=== PATIENT | female | born 1970 | race Caucasian/White ===

== ENCOUNTER 2016-10-24 16:24 | Observation (INO) ==
--- NOTE | 2016-10-24 17:14 | Emergency Department Note ---
Disposition Clinical Impression: Psychiatric care, Mental retardation Disposition: Admitted As Inpatient Psych HPI - General Chief Complaint: ED Psychiatric Symptoms Stated Complaint: psych eval Time Seen by Provider: 10/24/16 16:45 Source: patient - History of Present Illness HPI Narrative: 46 yo female presented with complaint of acting bizarre per family. Family reports the patient has been standing and staring into space for hours, states that she might have schizophrenia. Patient has no known history of schizophrenia, family is not really sure what psychiatric diagnoses she has in the past. However, they do report that she has been on antipsychotics in the past. Patient was seen at an outside emergency department and transferred here to be seen by psychiatry. Family denies patient having any suicidal/homicidal ideation, past history of suicidal attempts. Pt complaint: altered mental status Duration: constant History of similar episodes: Yes Worsens with: none Alleged intoxication: Yes - Related Data Home Medications Medication Instructions Recorded Confirmed Lisinopril [Zestril] 5 mg PO DAILY 02/11/16 02/11/16 Previous Rx's Medication Instructions Recorded Gabapentin [Neurontin] 300 mg PO TID #90 capsule 02/12/16 RisperiDONE [RisperDAL] 1 mg PO BID #60 tablet 02/12/16 TraZODone 50 mg PO HS PRN #30 tablet 02/12/16 Allergies Allergy/AdvReac Type Severity Reaction Status Date / Time No Known Allergies Allergy Verified 12/23/15 19:25 Limitations: ROS unobtainable due to patients medical condition Past Medical History - Past Medical History Medical history: Reports: hypertension Surgical history: Reports: , other Psychiatric history: Reports: previous psychiatric hospitalization [employer] history: Reports: other - Social History Smoking Status: Never smoker Smokeless Tobacco Status: No Alcohol use: Reports: none Drug use: Reports: none Physical Exam - General Limitations: no limitations General appearance: alert, in no apparent distress - Head Head exam: atraumatic, normocephalic, normal inspection - Eye Eye exam: Present: normal appearance, PERRL - Expanded Eye Exam Pupils: Left: reactive - ENT ENT exam: normal exam, normal oropharynx, mucous membranes moist - Expanded ENT Exam External ear exam: Present: normal external inspection Mouth exam: Present: normal external inspection Teeth exam: Present: normal inspection Throat exam: Present: normal inspection - Neck Neck exam: Present: trachea midline. Absent: tenderness - Chest Chest inspection: Present: normal inspection, symmetric chest wall rise - Respiratory Respiratory exam: Absent: respiratory distress, wheezes - Cardiovascular Cardiovascular exam: Present: normal rhythm - Abdominal Exam Abdominal exam: Absent: tenderness, distention - Extremities Exam Extremities exam: Present: normal inspection, full ROM. Absent: tenderness, pedal edema - Expanded Upper Extremity Exam Vascular exam: Normal: capillary refill, radial pulse - Expanded Lower Extremity Exam Neurovascular/Tendon exam: Absent: motor deficit, sensory deficit, tendon deficit - Back Exam Back exam: Present: normal inspection, full ROM. Absent: tenderness - Neurological Exam Neurological exam: Present: alert, oriented X3 - Expanded Neurological Exam Patient oriented to: Present: person, place, time Coma Scale Eye Opening: Spontaneous Coma Scale Motor Response: Obeys Commands Coma Scale Verbal Response: Oriented Coma Scale Total: 15 - Psychiatric Psychiatric exam: Present: normal affect, normal mood - Skin Skin exam: Present: warm, dry, intact, normal color Course Course Narrative: Patient presented with complaint of acting bizarre, some catatonia per family. Family suspects the patient might have schizophrenia, she does not appear to be hallucinating when I am in the room. Otherwise she is noncooperative the review of systems, she keeps repeating that she wants to go home. Patient's family is in the ED providing most of the history. I will get basic labs, call psychiatric constipation. - Reevaluation(s) Reevaluation #1: Psychiatrist cleared patient from acute psychiatric travel standpoint; however, patient cannot be discharged home because family feel that she cannot be safe at home being taken care of by pt's father. Patient's brother, [id number] and nephew expressed great concern that patient would not be safe going home under father's care as was previously arrangement. I Did discuss case with the hospitalist, he is willing to admit patient for observation and social sciences research scientist evaluation in the morning and further care. Patient's father agrees with this plan of care at this time. Vital Signs Temperature 98.2 F 10/24/16 16:26 Pulse Rate 116 10/24/16 16:26 Respiratory Rate 20 10/24/16 16:26 Blood Pressure 96/60 10/24/16 16:26 O2 Sat by Pulse Oximetry 98 10/24/16 16:26 Temperature 98.3 F 10/24/16 21:59 Pulse Rate 116 10/24/16 21:59 Respiratory Rate 16 10/24/16 21:59 Blood Pressure 96/60 10/24/16 16:26 O2 Sat by Pulse Oximetry 96 10/24/16 21:59 Oxygen Delivery Oxygen Delivery Room Air Psych - Lab Data Result diagrams: 10/24/16 17:25 10/24/16 17:25 Lab Results 10/24/16 10/24/16 10/24/16 Range/Units 17:08 17:08 17:10 WBC (4.3-11.1) K/mcL RBC (3.82-4.97) M/mcL Hgb (11.5-15.4) g/dL Hct (35.3-44.9) % MCV (83.0-100.0) fL MCH (28.0-33.3) pg MCHC (31.6-35.5) g/dL RDW (11.5-14.5) % Plt Count (140-400) K/mcL MPV (9.4-12.4) fL Immature Gran % (0-4) % Seg Neutrophils % % Lymphocytes % % Monocytes % % Eosinophils % % Basophils % % Neutrophils # (1.6-8.9) K/mcL Lymphocytes # (0.6-4.6) K/mcL Monocytes # (0.0-1.3) K/mcL Eosinophils # (0.0-0.6) K/mcL Basophils # (0.0-0.2) K/mcL Sodium (136-145) mEq/L Potassium (3.5-4.5) mEq/L Chloride (98-109) mEq/L Carbon Dioxide (19-29) mEq/L BUN (7-20) mg/dL Creatinine (0.57-1.11) mg/dL Est GFR ( Amer) (> 60) Est GFR (Non-Af Amer) (> 60) BUN/Creatinine Ratio (6-26) Glucose (70-99) mg/dL Calculated Osmolality (280-300) Calcium (8.6-10.8) mg/dL TSH (0.350-4.840) mcIU/mL Urine Color Yellow (Yellow) Urine Clarity Clear (Clear) Urine pH 5.5 (5.0-8.0) pH Units Ur Specific [place] 1.027 H (1.010-1.025) Urine Protein Trace (Neg-Trace) mg/dL Urine Glucose (UA) Normal (Normal) mg/dL Urine Ketones 15 H (Negative) mg/dL Urine Blood Negative (Negative) Urine Nitrite Negative (Negative) Urine Bilirubin Small H (Negative) Urine Urobilinogen Normal (Normal) mg/dL Ur Leukocyte Esterase Negative (Negative) Urine Microscopic RBC 0-3 (0-3) per hpf Urine Microscopic WBC 0-3 (0-3) per hpf Ur Squamous Epith Cells Many H (None-Few) per lpf Urine Bacteria Moderate H (None-Few) per hpf Hyaline Casts None Seen (None-Few) per lpf Ur Culture Indicated? NO (NO) Urine Test Negative (Negative) Salicylates (15-30) mg/dL Urine Opiates Screen Negative (Mtnwbm=429) ng/mL Acetaminophen (10-30) mcg/mL Ur Barbiturates Screen Negative (Hmcnwa=482) ng/mL Ur Phencyclidine Scrn Negative (Cutoff=25) ng/mL Ur Amphetamines Screen Negative (Gretqs=8121) ng/mL U Benzodiazepines Scrn Negative (Gnldol=995) ng/mL Urine Cocaine Screen Negative (Cutoff= 300) ng/mL U Marijuana (THC) Screen Negative (Cutoff = 50) ng/mL Ethyl Alcohol (0-10) mg/dL 10/24/16 10/24/16 10/24/16 Range/Units 17:25 17:25 17:25 WBC 9.3 (4.3-11.1) K/mcL RBC 3.86 (3.82-4.97) M/mcL Hgb 10.4 L (11.5-15.4) g/dL Hct 32.4 L (35.3-44.9) % MCV 83.9 (83.0-100.0) fL MCH 26.9 L (28.0-33.3) pg MCHC 32.1 (31.6-35.5) g/dL RDW 16.4 H (11.5-14.5) % Plt Count 320 (140-400) K/mcL MPV 9.6 (9.4-12.4) fL Immature Gran % 0.2 (0-4) % Seg Neutrophils % 78.9 % Lymphocytes % 13.5 % Monocytes % 6.6 % Eosinophils % 0.5 % Basophils % 0.3 % Neutrophils # 7.3 (1.6-8.9) K/mcL Lymphocytes # 1.3 (0.6-4.6) K/mcL Monocytes # 0.6 (0.0-1.3) K/mcL Eosinophils # 0.1 (0.0-0.6) K/mcL Basophils # 0.0 (0.0-0.2) K/mcL Sodium 137 (136-145) mEq/L Potassium 4.0 (3.5-4.5) mEq/L Chloride 102 (98-109) mEq/L Carbon Dioxide 24 (19-29) mEq/L BUN 27 H (7-20) mg/dL Creatinine 1.08 (0.57-1.11) mg/dL Est GFR ( Amer) > 60 (> 60) Est GFR (Non-Af Amer) 55 L (> 60) BUN/Creatinine Ratio 25 (6-26) Glucose 110 H (70-99) mg/dL Calculated Osmolality 290 (280-300) Calcium 9.8 (8.6-10.8) mg/dL TSH (0.350-4.840) mcIU/mL Urine Color (Yellow) Urine Clarity (Clear) Urine pH (5.0-8.0) pH Units Ur Specific [place] (1.010-1.025) Urine Protein (Neg-Trace) mg/dL Urine Glucose (UA) (Normal) mg/dL Urine Ketones (Negative) mg/dL Urine Blood (Negative) Urine Nitrite (Negative) Urine Bilirubin (Negative) Urine Urobilinogen (Normal) mg/dL Ur Leukocyte Esterase (Negative) Urine Microscopic RBC (0-3) per hpf Urine Microscopic WBC (0-3) per hpf Ur Squamous Epith Cells (None-Few) per lpf Urine Bacteria (None-Few) per hpf Hyaline Casts (None-Few) per lpf Ur Culture Indicated? (NO) Urine Test (Negative) Salicylates < 5.0 L (15-30) mg/dL Urine Opiates Screen (Ktkgbk=364) ng/mL Acetaminophen < 1.0 L (10-30) mcg/mL Ur Barbiturates Screen (Nnjxuu=764) ng/mL Ur Phencyclidine Scrn (Cutoff=25) ng/mL Ur Amphetamines Screen (Skxlbt=5853) ng/mL U Benzodiazepines Scrn (Hqskwb=268) ng/mL Urine Cocaine Screen (Cutoff= 300) ng/mL U Marijuana (THC) Screen (Cutoff = 50) ng/mL Ethyl Alcohol (0-10) mg/dL 10/24/16 10/24/16 Range/Units 17:25 17:25 WBC (4.3-11.1) K/mcL RBC (3.82-4.97) M/mcL Hgb (11.5-15.4) g/dL Hct (35.3-44.9) % MCV (83.0-100.0) fL MCH (28.0-33.3) pg MCHC (31.6-35.5) g/dL RDW (11.5-14.5) % Plt Count (140-400) K/mcL MPV (9.4-12.4) fL Immature Gran % (0-4) % Seg Neutrophils % % Lymphocytes % % Monocytes % % Eosinophils % % Basophils % % Neutrophils # (1.6-8.9) K/mcL Lymphocytes # (0.6-4.6) K/mcL Monocytes # (0.0-1.3) K/mcL Eosinophils # (0.0-0.6) K/mcL Basophils # (0.0-0.2) K/mcL Sodium (136-145) mEq/L Potassium (3.5-4.5) mEq/L Chloride (98-109) mEq/L Carbon Dioxide (19-29) mEq/L BUN (7-20) mg/dL Creatinine (0.57-1.11) mg/dL Est GFR ( Amer) (> 60) Est GFR (Non-Af Amer) (> 60) BUN/Creatinine Ratio (6-26) Glucose (70-99) mg/dL Calculated Osmolality (280-300) Calcium (8.6-10.8) mg/dL TSH 2.285 (0.350-4.840) mcIU/mL Urine Color (Yellow) Urine Clarity (Clear) Urine pH (5.0-8.0) pH Units Ur Specific [place] (1.010-1.025) Urine Protein (Neg-Trace) mg/dL Urine Glucose (UA) (Normal) mg/dL Urine Ketones (Negative) mg/dL Urine Blood (Negative) Urine Nitrite (Negative) Urine Bilirubin (Negative) Urine Urobilinogen (Normal) mg/dL Ur Leukocyte Esterase (Negative) Urine Microscopic RBC (0-3) per hpf Urine Microscopic WBC (0-3) per hpf Ur Squamous Epith Cells (None-Few) per lpf Urine Bacteria (None-Few) per hpf Hyaline Casts (None-Few) per lpf Ur Culture Indicated? (NO) Urine Test (Negative) Salicylates (15-30) mg/dL Urine Opiates Screen (Lotsxq=178) ng/mL Acetaminophen (10-30) mcg/mL Ur Barbiturates Screen (Tjnwic=195) ng/mL Ur Phencyclidine Scrn (Cutoff=25) ng/mL Ur Amphetamines Screen (Buscwp=6061) ng/mL U Benzodiazepines Scrn (Apqvjk=942) ng/mL Urine Cocaine Screen (Cutoff= 300) ng/mL U Marijuana (THC) Screen (Cutoff = 50) ng/mL Ethyl Alcohol < 10 (0-10) mg/dL Psychiatric Medical Clearance - Medical Clearance Checklist Medical History: No Social History Section defined Current Vitals: Last Vital Signs Temp 98.3 F 10/24/16 21:59 Pulse 116 10/24/16 21:59 Resp 16 10/24/16 21:59 BP 96/60 10/24/16 16:26 Pulse Ox 96 10/24/16 21:59 Psychiatric Lab Panel: Drug Levels and Toxicity 10/24/16 10/24/16 10/24/16 17:10 17:25 17:25 Urine Opiates Screen Negative Acetaminophen < 1.0 L Ur Barbiturates Screen Negative Ur Phencyclidine Scrn Negative Ur Amphetamines Screen Negative U Benzodiazepines Scrn Negative Urine Cocaine Screen Negative U Marijuana (THC) Screen Negative Ethyl Alcohol < 10 Abnormal Labs: Abnormal lab results Hgb 10.4 g/dL (11.5-15.4) L 10/24/16 17:25 Hct 32.4 % (35.3-44.9) L 10/24/16 17:25 MCH 26.9 pg (28.0-33.3) L 10/24/16 17:25 RDW 16.4 % (11.5-14.5) H 10/24/16 17:25 BUN 27 mg/dL (7-20) H 10/24/16 17:25 Est GFR (Non-Af Amer) 55 (> 60) L 10/24/16 17:25 Glucose 110 mg/dL (70-99) H 10/24/16 17:25 Ur Specific [place] 1.027 (1.010-1.025) H 10/24/16 17:08 Urine Ketones 15 mg/dL (Negative) H 10/24/16 17:08 Urine Bilirubin Small (Negative) H 10/24/16 17:08 Ur Squamous Epith Cells Many per lpf (None-Few) H 10/24/16 17:08 Urine Bacteria Moderate per hpf (None-Few) H 10/24/16 17:08 Salicylates < 5.0 mg/dL (15-30) L 10/24/16 17:25 Acetaminophen < 1.0 mcg/mL (10-30) L 10/24/16 17:25 Statement of Medical Clearance: I have evaluated the patient, reviewed diagnostic information, and certify that the patient's medical condition is sufficiently stable that transfer to the psychiatric unit does not pose a significant risk of deterioration. Attestation Statement - Attestation Attestation: I examined this patient and my medical decision-making was reviewed with the CHIEF LOAD DISPATCHER/PA/Advanced Practice Nurse/Resident Physician. I agree with the documented findings, disposition and treatment plan as described except to the extent set forth below. Patient emergency department for evaluation. Family states that they saw nurse practitioner today who states that she probably has schizophrenia. They state they were sent here to see our psychiatric department and be admitted. Exam shows her sitting on the bed in no distress. Obviously developmentally delayed. Heart regular lungs clear abdomen soft. Plan. Medical clearance and Ia evaluation.
[2016-10-24 17:25] LABS: Bilirubin,Urine Small (Negative); Blood,Urine Negative (Negative); Clarity,Urine Clear (Clear); Color,Urine Yellow (Yellow); Glucose,Urine (UA) Normal (Normal); Ketones,Urine 15 mg/dL (Negative); Leukocyte Esterase,Urine Negative (Negative); Nitrite,Urine Negative (Negative); PH,Urine 5.5 pH Units (5.0-8.0); Protein,Urine Trace mg/dL (Neg-Trace); Specific Gravity,Urine 1.027 (1.010-1.025); Urobilinogen,Urine Normal (Normal)
[2016-10-24 17:27] LABS: Amphetamine Screen,Urine Negative ng/mL (Cutoff=1000); Barbiturate Screen,Urine Negative ng/mL (Cutoff=200); Benzodiazepines Screen,Urine Negative ng/mL (Cutoff=200); Cannabinoid Screen,Urine Negative ng/mL (Cutoff = 50); Cocaine Screen,Urine Negative ng/mL (Cutoff= 300); Opiate Screen,Urine Negative ng/mL (Cutoff=300); Phencyclidine Screen,Urine Negative ng/mL (Cutoff=25)
[2016-10-24 17:28] LABS: Bacteria,Urine Moderate per hpf (None-Few); Hyaline Casts,Urine None Seen per lpf (None-Few); RBC,Urine 0-3 per hpf (0-3); Squamous Epithelial Cell,Urine Many per lpf (None-Few); WBC,Urine 0-3 per hpf (0-3)
[2016-10-24 17:32] LABS: Basophils % 0.3 %; Eosinophils # 0.1 K/mcL (0.0-0.6); Eosinophils % 0.5 %; Hematocrit 32.4 % (35.3-44.9); Hemoglobin 10.4 g/dL (11.5-15.4); Immature Granulocytes % 0.2 % (0-4); Lymphocytes # 1.3 K/mcL (0.6-4.6); Lymphocytes % 13.5 %; Mean Corpuscular HGB Conc 32.1 g/dL (31.6-35.5); Mean Corpuscular Hemoglobin 26.9 pg (28.0-33.3); Mean Corpuscular Volume 83.9 fL (83.0-100.0); Mean Platelet Volume 9.6 fL (9.4-12.4); Monocytes # 0.6 K/mcL (0.0-1.3); Monocytes % 6.6 %; Neutrophils # 7.3 K/mcL (1.6-8.9); Platelet Count 320 K/mcL (140-400); Red Blood Count 3.86 M/mcL (3.82-4.97); Red Cell Distribution Width 16.4 % (11.5-14.5); Segmented Neutrophils % 78.9 %
[2016-10-24 17:45] LABS: BUN/Creatinine Ratio 25 (6-26); Blood Urea Nitrogen 27 mg/dL (7-20); Calcium 9.8 mg/dL (8.6-10.8); Carbon Dioxide 24 mEq/L (19-29); Chloride 102 mEq/L (98-109); Glucose 110 mg/dL (70-99); Osmolality,Calculated 290 (280-300); Sodium 137 mEq/L (136-145); eGFR For African Americans > 60 (> 60); eGFR For Non-African Americans 55 (> 60)
[2016-10-24 17:47] LABS: Acetaminophen < 1.0 mcg/mL (10-30); Salicylate < 5.0 mg/dL (15-30)
[2016-10-24] MEDS ORDERED: *HR* Promethazine 25 MG/ML VIAL IVP PRN (22:36)
[2016-10-24] MEDS ORDERED: Acetaminophen 325 MG TABLET PO PRN (22:36)
[2016-10-24] MEDS ORDERED: *HR* OxyCODONE Immed Rel 5 MG TABLET PO PRN (22:36)
[2016-10-24] MEDS ORDERED: Naloxone 0.4 MG/ML INJ IVP PRN (22:36)
[2016-10-24] MEDS ORDERED: Ketorolac 30 MG/ML VIAL IVP PRN (22:36)
[2016-10-24] MEDS ORDERED: traZODone 50 MG TABLET PO PRN (22:49)
[2016-10-25] MEDS: Gabapentin 300 MG CAPSULE PO SCH ×4 (01:38→20:42)
[2016-10-25] MEDS: Melatonin 3 MG TABLET PO SCH ×2 (01:38→20:42)
[2016-10-25] MEDS: risperiDONE 1 MG TABLET PO SCH ×3 (01:38→20:42)
--- NOTE | 2016-10-25 05:50 | Internal Med History&Physical ---
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 (2) Adjustment reaction with anxiety and depression Current visit: Yes Status: Acute . (3) Encephalopathy chronic Current visit: Yes Status: Chronic . (4) Delirium due to conditions classified elsewhere Current visit: Yes Status: Acute . (5) Anemia Current visit: Yes Status: Chronic . Qualifiers: Anemia type: unspecified type Qualified Code(s): D64.9 - Anemia, unspecified (6) Acute kidney injury Current visit: Yes Status: Acute . (7) Behavioral disorder Current visit: Yes Status: Acute . (8) Mental retardation Current visit: Yes Status: Chronic . (9) Conversion reaction Current visit: Yes Status: Acute . (10) Obesity (BMI 30-39.9) Current visit: Yes Status: Chronic . Internal Medicine - H&P: HPI Chief complaint: Altered mental status Admitted From: Emergency Dept Plans for Post Hospital Care: Home History of present illness: Ms. Peacock is a 46 year old female with significant medical history of mental retardation developmental delay, depression and anxiety disorder, hypertension, obesity, nonsmoker. The patient was visited and interviewed and examined. The patient was found to be encephalopathic. Nonverbal. Purposely avoidant of eye contact. Pressured/ resistent, anxious, drawn, agitated body posturing and affect. Validation of history of present illness provided by family members. The patient is admitted to [facility] via the emergency department when she presents in the company of family with reports of alteration in mental status. Family members report that the patient has been standing and staring into space hours at a time. Nonverbal. Preoccupied. Inattentive. There has been no report by family members of any perceived suicidal ideation or homicidal ideation nor attempts.. She has however been hostile and aggressive towards family members. Hyper irritable. They have taken her to an outside emergency department earlier in the day to address these concerns and the patient was promptly transferred to [facility] to access evaluation by psychiatry. The patient does carry a psychiatric diagnosis with the family cannot elucidate what that is. She has been prescribed psychotropic agents including Risperdal and Neurontin and trazodone. She has been hospitalized within an inpatient psychiatric facility in the past. Family members question of possible schizophrenia development. They cannot identify any inciting events the patient's current behavior. Resisted behavior seems intentional. As if patient is protesting something important to her. Family acknowledges that the patient is MRDD. Denies any recreational drug indiscretions. Family members suggested this time that because of uncertainty of her mental health issues they will not be able to participate in her management and meeting her healthcare needs going forward's. A cement in a assisted living or long-term care arrangement is desired. Findings in the ED: Temperature 98.2 pulse 116 respiration 20 BP 96/60 O2 saturation 98% room air. WBC 9.3 hemoglobin 10.4 hematocrit 32.4 platelets 320, 000. RDW 16.4. MCH 26.9. Differential normal. Metabolic panel normal. BUN 27 creatinine 1.08 GFR 55. Glucose 110 osmolality 290. Salicylate less than 5 acetaminophen less than 1. Urine negative. Urine drug screen negative. Urinalysis trace protein and large ketones small bilirubin. 3 red cells 3 white cells. Many epithelial cells moderate bacteria. TSH 2.285. Ethyl alcohol less than 10. Chest x-ray demonstrated no acute or active cardiopulmonary process. Preliminary impression suggests acute alteration in mental status suggestive of acute on chronic encephalopathy with delirium the patient with will find long history of mental retardation and developmental delay complicated by a mood disorder yet to be clarified. Presentation appears to have been stimulated by a situational adjustment reaction. This is yet to be clarified. Initial screening studies are unrevealing. There is no report by family of prior suicide or homicidal attempt. Suicide ideation or homicidal ideation. No apparent physical findings to suggest abuse or physical assault. There is no report by family of any overt auditory of visual hallucinatory behaviors. She appears by the description to manifest a behavioral disorder yet to be clarified. Presentation does not appear consistent with the catatonia /catatonic state noticed the patient present evidence for overt psychosis. No evidence to suggest that the patient is experiencing seizure-like activity, fuge state or sleepwalking behaviors. Given presenting concerns patient's history of presenting findings and understanding her list of comorbidities she is at risk for further clinical decline and morbidity. Workup and treatment progress comprehensively. Cumulative laboratory and radiographic data base was reviewed, considered and discussed. Pertinent ancillary medical records including ECW and PCI documentation, when available, was reviewed and considered. Given the patient's presenting concerns, past medical history, clinical findings and symptoms, she is admitted at this time will undergo further evaluation and disposition. Orders were written as per the computerized physician order entry representative system.......................................................................... .................... Consultative opinion and will be sought as clinical circumstances justify. Pain management needs will be addressed. Laboratory and radiographic data base will be updated as appropriate. Studies include: Cultures of blood and urine , cardiac injury panel, BNP, prolactin, metabolic and hematologic panel, magnesium, phosphorus, ionized calcium, thyroid panel, lipid profile, A1c, C-peptide, CRP, sedimentation rate, urine , blood gas, lactic acid, U/A, UDS, salicylate level, acetaminophen level, ethanol level, serologies, etc. Precautions: Aspiration, fall, seizure, delirium protocol/surveillance initiated. One to one sitter provided. Telemetry with continuous hemodynamic monitoring and pulse oximetry initiated. Empiric antibody coverage: pending culture data. Special studies: CT head, chest x-ray, telemetry, EKG. Pulmonary toilet: Incentive spirometry. When necessary aerosol bronchodilator, mucolytic, antitussive. When necessary supplemental oxygen. Fluid and electrolyte repletion efforts will proceed. Careful attention to fluid balance and renal recovery will be emphasized. Avoidance of nephrotoxic exposure and adverse drug drug interaction in the setting of impaired renal function will be monitored closely. Acute coronary syndrome protocol/surveillance initiated. DVT and PUD prophylaxis initiated: PPI therapy, intermittent pneumatic cuffs. Subcutaneous heparin/lovenox. Early ambulation will be encouraged. Immunization updates recommended. Influenza and pneumococcal vaccinations as part of ongoing preventative healthcare recommendations strongly recommended. Smoking cessation counseling to be addressed when circumstances permit. Patient is a nonsmoker as per hospital records. Advanced care directive discussion will be addressed when patient's circumstances permit. Patient does not declare any healthcare restrictions at this time as per family members.. Cardiovascular risk appraisal and cardiovascular risk reduction efforts will be emphasized. Physical and occupational therapy may be consulted to assess patient's functional capacity and progress mobility if her circumstances justify. Outpatient medication schedules will be reviewed confirmed and facilitated as appropriate. Reconciliation of home treatments including adjustments, substitutions and reintroduction into the treatment regimen will address necessary maintenance therapies for chronic pre-existing medical conditions. Plan of care has been reviewed and discussed in detail with the patient's family. Questions addressed. Hospital course will be dependent on clinical findings, treatment response and potential consultative interventions. Patient is at risk for further acute clinical decline due to her age/ developmental delay, presenting chief complaints and comorbid conditions. Condition is serious. Prognosis is guarded. CODE STATUS is full. Past Med Surg Social Fam HX - Past Medical History Source: old records reviewed Medical history: arthritis, hypertension, other (Mental retardation) Psychiatric history: anxiety, depression, previous psychiatric hospitalization, other - Past Surgical History Surgical History: , other - Social History Smoking Status: Never smoker Smokeless Tobacco Status: No Alcohol use: none Drug use: none Occupational status: disabled Current living situation: With Family Activity Level: Independent ambulation, Mostly sedentary Recent Out of Country Travel Within the Last 8 Weeks: No Exposure or Possible Exposure to Illness During Travel: No - Family History Father History Unknown: Yes Internal Medicine - H&P: Meds Apixaban [Eliquis] 5 mg PO DAILY 10/24/16 [History] Citalopram [CeleXA] 20 mg PO DAILY 10/24/16 [History] Lisinopril [Zestril] 5 mg PO DAILY 10/24/16 [History] RisperiDONE [Risperidone] 2 mg PO BID 10/24/16 [History] Allergies No Known Allergies Allergy (Verified 12/23/15 19:25) ROS unobtainable: due to mental status All Systems PM: A 10-system review of systems was performed and is negative for pertinent findings except as documented above in the HPI. - Constitutional Constitutional: as per HPI - EENT Eyes: as per HPI Ears: as per HPI Nose, mouth and throat: as per HPI - Cardiovascular Cardiovascular ROS IM: as per HPI - Respiratory Respiratory: as per HPI - Gastrointestinal Gastrointestinal: as per HPI - Genitourinary Genitourinary: as per HPI Menstruation: as per HPI - Musculoskeletal Musculoskeletal ROS IM: as per HPI - Integumentary Integumentary IM: as per HPI - Neurological Neurological ROS: as per HPI - Psychiatric Psychiatric: as per HPI - Endocrine Endocrine IM: as per HPI - Hematologic/Lymphatic Hematologic/Lymphatic: as per HPI - Allergic/Immunologic Allergic/Immunologic: as per HPI - Constitutional Vitals: Temp Pulse Resp BP Pulse Ox 98.2 F 55 14 124/75 96 10/25/16 00:22 10/25/16 00:22 10/25/16 00:22 10/25/16 00:22 10/25/16 00:22 General appearance: Present: A&O X 0, disheveled, no acute distress, obese. Absent: cooperative, answers questions appropriately - Head Head exam: Present: atraumatic, normocephalic - Eye Eye exam: Present: PERRL, conjuntiva pink, sclera anicteric Pupils: Present: normal accommodation, PERRL - ENT ENT exam: Present: mucous membranes moist, normal external ear exam, normal oropharynx - Neck Neck exam general surgery: Present: full ROM, supple, trachea midline. Absent: lymphadenopathy, tenderness, nuchal rigidity - Respiratory Respiratory exam: Present: decreased breath sounds, CTAB. Absent: accessory muscle use, rales, rhonchi, wheezes - Cardiovascular Cardiovascular exam: Present: distant heart sounds, RRR, +S1, +S2, tachycardia. Absent: diastolic murmur, gallop, rubs, systolic murmur - GI/Abdominal GI/Abdominal exam: Present: normal bowel sounds, soft, no peritoneal signs. Absent: distended, tenderness - Extremities Exam Extremities exam: Present: full ROM, warm, radial pulses palpable and symetrical. Absent: calf tenderness, cyanotic, pedal edema - Neurological Exam Neurological exam: Present: alert, altered, CN II-XII intact, oriented X3, no focal deficits. Absent: pronater drift, facial droop, speech deficit - Expanded Neurological Exam Neurological exam expanded: Present: ataxia, inattentive, protecting the airway. Absent: expressive aphasia, receptive aphasia Patient oriented to: Absent: person, place, time Coma Scale Eye Opening: To Voice Coma Scale Motor Response: Withdraws to Pain Coma Scale Verbal Response: Inappropriate Coma Scale Total: 10 - Psychiatric Psychiatric exam: Present: depressed, flat affect - Expanded Psychiatric Exam Focused psych exam: Present: mute - Skin Skin exam: Present: dry, intact, warm. Absent: petechiae, rash, urticaria, vesicles Internal Med - H&P Results - Labs CBC & Chem 7: 10/24/16 17:25 10/24/16 17:25 - Impressions Vital Signs Temp Pulse Resp BP Pulse Ox 10/25/16 00:22 98.2 F 55 14 124/75 96 10/24/16 23:12 16 105/72 10/24/16 21:59 98.3 F 116 16 96 10/24/16 16:26 98.2 F 116 20 96/60 98 Intake and Output 10/24/16 10/24/16 10/25/16 15:59 23:59 07:59 Other: Weight 63.503 kg Short CBC 10/24/16 Range/Units 17:25 WBC 9.3 (4.3-11.1) K/mcL Hgb 10.4 L (11.5-15.4) g/dL Hct 32.4 L (35.3-44.9) % Plt Count 320 (140-400) K/mcL Neutrophils # 7.3 (1.6-8.9) K/mcL BMP 10/24/16 Range/Units 17:25 Sodium 137 (136-145) mEq/L Potassium 4.0 (3.5-4.5) mEq/L Chloride 102 (98-109) mEq/L Carbon Dioxide 24 (19-29) mEq/L BUN 27 H (7-20) mg/dL Creatinine 1.08 (0.57-1.11) mg/dL Glucose 110 H (70-99) mg/dL Calcium 9.8 (8.6-10.8) mg/dL Urine 10/24/16 Range/Units 17:08 Urine Color Yellow (Yellow) Urine Clarity Clear (Clear) Urine pH 5.5 (5.0-8.0) pH Units Ur Specific Sutton 1.027 H (1.010-1.025) Urine Protein Trace (Neg-Trace) mg/dL Urine Glucose (UA) Normal (Normal) mg/dL Abnormal lab results Hgb 10.4 g/dL (11.5-15.4) L 10/24/16 17:25 Hct 32.4 % (35.3-44.9) L 10/24/16 17:25 MCH 26.9 pg (28.0-33.3) L 10/24/16 17:25 RDW 16.4 % (11.5-14.5) H 10/24/16 17:25 BUN 27 mg/dL (7-20) H 10/24/16 17:25 Est GFR (Non-Af Amer) 55 (> 60) L 10/24/16 17:25 Glucose 110 mg/dL (70-99) H 10/24/16 17:25 Ur Specific [place] 1.027 (1.010-1.025) H 10/24/16 17:08 Urine Ketones 15 mg/dL (Negative) H 10/24/16 17:08 Urine Bilirubin Small (Negative) H 10/24/16 17:08 Ur Squamous Epith Cells Many per lpf (None-Few) H 10/24/16 17:08 Urine Bacteria Moderate per hpf (None-Few) H 10/24/16 17:08 Salicylates < 5.0 mg/dL (15-30) L 10/24/16 17:25 Acetaminophen < 1.0 mcg/mL (10-30) L 10/24/16 17:25 Allergies Allergy/AdvReac Type Severity Reaction Status Date / Time No Known Allergies Allergy Verified 12/23/15 19:25 Laboratory Results WBC 9.3 K/mcL (4.3-11.1) 10/24/16 17:25 RBC 3.86 M/mcL (3.82-4.97) 10/24/16 17:25 Hgb 10.4 g/dL (11.5-15.4) L 10/24/16 17:25 Hct 32.4 % (35.3-44.9) L 10/24/16 17:25 MCV 83.9 fL (83.0-100.0) 10/24/16 17:25 MCH 26.9 pg (28.0-33.3) L 10/24/16 17:25 MCHC 32.1 g/dL (31.6-35.5) 10/24/16 17:25 RDW 16.4 % (11.5-14.5) H 10/24/16 17:25 Plt Count 320 K/mcL (140-400) 10/24/16 17:25 MPV 9.6 fL (9.4-12.4) 10/24/16 17:25 Immature Gran % 0.2 % (0-4) 10/24/16 17:25 Seg Neutrophils % 78.9 % 10/24/16 17:25 Lymphocytes % 13.5 % 10/24/16 17:25 Monocytes % 6.6 % 10/24/16 17:25 Eosinophils % 0.5 % 10/24/16 17:25 Basophils % 0.3 % 10/24/16 17:25 Neutrophils # 7.3 K/mcL (1.6-8.9) 10/24/16 17:25 Lymphocytes # 1.3 K/mcL (0.6-4.6) 10/24/16 17:25 Monocytes # 0.6 K/mcL (0.0-1.3) 10/24/16 17:25 Eosinophils # 0.1 K/mcL (0.0-0.6) 10/24/16 17:25 Basophils # 0.0 K/mcL (0.0-0.2) 10/24/16 17:25 Sodium 137 mEq/L (136-145) 10/24/16 17:25 Potassium 4.0 mEq/L (3.5-4.5) 10/24/16 17:25 Chloride 102 mEq/L (98-109) 10/24/16 17:25 Carbon Dioxide 24 mEq/L (19-29) 10/24/16 17:25 BUN 27 mg/dL (7-20) H 10/24/16 17:25 Creatinine 1.08 mg/dL (0.57-1.11) 10/24/16 17:25 Est GFR ( Amer) > 60 (> 60) 10/24/16 17:25 Est GFR (Non-Af Amer) 55 (> 60) L 10/24/16 17:25 BUN/Creatinine Ratio 25 (6-26) 10/24/16 17:25 Glucose 110 mg/dL (70-99) H 10/24/16 17:25 Calculated Osmolality 290 (280-300) 10/24/16 17:25 Calcium 9.8 mg/dL (8.6-10.8) 10/24/16 17:25 TSH 2.285 mcIU/mL (0.350-4.840) 10/24/16 17:25 Urine Color Yellow (Yellow) 10/24/16 17:08 Urine Clarity Clear (Clear) 10/24/16 17: Urine pH 5.5 pH Units (5.0-8.0) 10/24/16 17: Ur Specific [place] 1.027 (1.010-1.025) H 10/24/16 17:08 Urine Protein Trace mg/dL (Neg-Trace) 10/24/16 17:08 Urine Glucose (UA) Normal mg/dL (Normal) 10/24/16 17:08 Urine Ketones 15 mg/dL (Negative) H 10/24/16 17:08 Urine Blood Negative (Negative) 10/24/16 17:08 Urine Nitrite Negative (Negative) 10/24/16 17:08 Urine Bilirubin Small (Negative) H 10/24/16 17:08 Urine Urobilinogen Normal mg/dL (Normal) 10/24/16 17:08 Ur Leukocyte Esterase Negative (Negative) 10/24/16 17:08 Urine Microscopic RBC 0-3 per hpf (0-3) 10/24/16 17:08 Urine Microscopic WBC 0-3 per hpf (0-3) 10/24/16 17:08 Ur Squamous Epith Cells Many per lpf (None-Few) H 10/24/16 17:08 Urine Bacteria Moderate per hpf (None-Few) H 10/24/16 17:08 Hyaline Casts None Seen per lpf (None-Few) 10/24/16 17:08 Ur Culture Indicated? NO (NO) 10/24/16 17:08 Urine Test Negative (Negative) 10/24/16 17:08 Salicylates < 5.0 mg/dL (15-30) L 10/24/16 17:25 Urine Opiates Screen Negative ng/mL (Ttgbjv=744) 10/24/16 17:10 Acetaminophen < 1.0 mcg/mL (10-30) L 10/24/16 17:25 Ur Barbiturates Screen Negative ng/mL (Iifpto=248) 10/24/16 17:10 Ur Phencyclidine Scrn Negative ng/mL (Cutoff=25) 10/24/16 17:10 Ur Amphetamines Screen Negative ng/mL (Veirgp=4090) 10/24/16 17:10 U Benzodiazepines Scrn Negative ng/mL (Zpbqco=121) 10/24/16 17:10 Urine Cocaine Screen Negative ng/mL (Cutoff= 300) 10/24/16 17:10 U Marijuana (THC) Screen Negative ng/mL (Cutoff = 50) 10/24/16 17:10 Ethyl Alcohol < 10 mg/dL (0-10) 10/24/16 17:25 Impressions Chest X-Ray 10/24/16 16:49 IMPRESSION: No evidence of acute disease. D/ / Enrrique Pollock MD / Enrrique Pollock MD Interpreting Provider: Enrrique Pololck MD
--- NOTE | 2016-10-25 10:27 | Electrocardiograph Report ---
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
--- NOTE | 2016-10-25 15:59 | EEG/EMG/Oth Biometrics Report ---
EEG Procedure Report Date of procedure: 10/25/16 EEG Procedure: Routine EEG Procedure Note: This is a report of a 21 channel bipolar and referential montage EEG. The posterior dominant rhythm consisted of mixed beta and alpha frequencies. This rhythm does not attenuate with eye opening. Hyperventilation is not performed during recording. There is no sleep activity identified during the study. Beta frequencies prevail anteriorly throughout the recording. Photic stimulation is performed and produces a symmetric driving response. The EKG strip reveals normal sinus rhythm at 70 beats per minute. Impression: This EEG recording is veterans service representative of normal wakefulness. There is no evidence of epileptiform activity identified during the recording. Comment: Beta frequencies are indeed recognized as a normal variant. There may also be reflective to metabolic conditions, anxiety, and medication effect particularly benzodiazepines and barbiturates. A normal EEG does not preclude a diagnosis of seizure or epilepsy. If the clinical suspicion for seizure activity is high, see EEGs or perhaps a prolonged recording may increase the yield. Please correlate clinically. The documentation in the history of HPI and plan were at least partially created by [place] voice recognition technology by Dr. Gutierrez. Errors in grammar, wording or other phrases may exist. If errors are found after the documentation signed, they will be addressed individually in the addendum section of this document when appropriate.
[2016-10-25] MEDS ORDERED: *HR* LORazepam 2 MG/ML VIAL IVP ONE (18:02)
[2016-10-26] MEDS: risperiDONE 1 MG TABLET PO SCH ×2 (08:12→20:34)
[2016-10-26] MEDS: Gabapentin 300 MG CAPSULE PO SCH ×3 (08:12→20:34)
--- NOTE | 2016-10-26 18:57 | Internal Med Progress Note ---
Date of Encounter: 10/26/16 Time of Encounter: 14:30 - Assessment and plan (1) Conversion reaction Current Visit: Yes Status: Acute Assessment and plan: Patient is alert and interactive but is clearly choosing to avoid on contacting choosing not to answer questions. Chest x-ray negative. Brain MRI negative. EEG negative. Urinalysis negative. Tox screen negative. Per emergency department report, psychiatry saw the patient and signed off on her and cleared her for outpatient follow-up. OT and PT have recommended ECF placement, we are awaiting placement at this time. Per 7th grade social studies teacher, there appears to be an issue with guardianship so it may be quite some time until the patient is transferred. She is not safe to be discharged home in the meantime. She is noted to be speaking to a few select staff members. We will continue to monitor. ITS Impressions Chest X-Ray 10/24/16 16:49 IMPRESSION: No evidence of acute disease. D/ / Enrrique Pollock MD / Enrrique Pollock MD Interpreting Provider: Enrrique Pollock MD Brain MRI 10/25/16 12:50 IMPRESSION: 1. No acute intracranial abnormality. No acute infarct. 2. Mild global parenchymal volume loss. 3. A few nonspecific foci of T2 FLAIR hyperintensity air seen within the supratentorial white matter. Diagnostic considerations include demyelinating lesions, vasculitis or perhaps early chronic microvascular ischemic change. D/ / Jamey Solitario MD / Jamey Solitario MD Interpreting Provider: Jamey Solitario MD impression: This EEG recording is customer contact representative of normal wakefulness. There is no evidence of epileptiform activity identified during the recording. (2) Mental retardation Current Visit: Yes Status: Chronic (3) Acute psychosis Current Visit: No Status: Acute (4) Behavioral disorder Current Visit: Yes Status: Chronic (5) Adjustment reaction with anxiety and depression Current Visit: Yes Status: Acute (6) Acute kidney injury Current Visit: Yes Status: Acute Assessment and plan: Very mild, will recheck with a.m. labs. Creatinine normal. (7) Anemia Current Visit: Yes Status: Acute Assessment and plan: New since 10/21/16. Very mild, will trend. Qualifiers: Anemia type: unspecified type Qualified Code(s): D64.9 - Anemia, unspecified (8) Depression Current Visit: No Status: Chronic Qualifiers: Depression Type: unspecified Qualified Code(s): F32.9 - Major depressive disorder, single episode, unspecified - Subjective Interval history: Patient seen and examined. On examination, patient sitting upright in her bed looking around. Patient intentionally avoiding eye contact. Patient intentionally not answering questions. She does not appear to be in any acute distress. She would not speak to me but appears stable. - Constitutional Vitals: Temp Pulse Resp BP Pulse Ox 98.2 F 75 15 105/68 98 10/26/16 15:03 10/26/16 15:03 10/26/16 15:03 10/26/16 15:03 10/26/16 15:03 General appearance: Present: A&O X 0, disheveled, no acute distress. Absent: cooperative, answers questions appropriately - Head Head exam: Present: atraumatic, normocephalic - Eye Eye exam: Present: PERRL, conjuntiva pink, sclera anicteric Pupils: Present: PERRL - Neck Neck exam general surgery: Present: supple, trachea midline. Absent: lymphadenopathy - Respiratory Respiratory exam: Present: CTAB. Absent: accessory muscle use, rales, respiratory distress, rhonchi, wheezes - Cardiovascular Cardiovascular exam: Present: RRR, +S1, +S2. Absent: diastolic murmur, gallop, rubs, systolic murmur - GI/Abdominal GI/Abdominal exam: Present: normal bowel sounds, soft, no peritoneal signs. Absent: distended, tenderness - Extremities Exam Extremities exam: Present: warm, radial pulses palpable and symetrical. Absent : calf tenderness, cyanotic, pedal edema - Neurological Exam Neurological exam: Present: alert, CN II-XII intact, oriented X3, no focal deficits. Absent: pronater drift, facial droop, speech deficit - Skin Skin exam: Present: dry, intact, normal color, warm Internal Medicine: Result - Labs CBC & Chem 7: 10/24/16 17:25 10/24/16 17:25 - Impressions Impressions Brain MRI 10/25/16 12:50 IMPRESSION: 1. No acute intracranial abnormality. No acute infarct. 2. Mild global parenchymal volume loss. 3. A few nonspecific foci of T2 FLAIR hyperintensity air seen within the supratentorial white matter. Diagnostic considerations include demyelinating lesions, vasculitis or perhaps early chronic microvascular ischemic change. D/ / Jamey Solitario MD / Jamey Solitario MD Interpreting Provider: Jamey Solitario MD Consult Discharge Plan - Plan Referrals: Roxana Rojas CNP [Primary Care Provider] -
[2016-10-26] MEDS: Melatonin 3 MG TABLET PO SCH (20:34)
[2016-10-27 04:21] LABS: Basophils % 0.3 %; Eosinophils # 0.2 K/mcL (0.0-0.6); Eosinophils % 2.7 %; Hematocrit 31.3 % (35.3-44.9); Hemoglobin 9.8 g/dL (11.5-15.4); Immature Granulocytes % 0.3 % (0-4); Lymphocytes # 1.6 K/mcL (0.6-4.6); Lymphocytes % 24.4 %; Mean Corpuscular HGB Conc 31.3 g/dL (31.6-35.5); Mean Corpuscular Hemoglobin 26.5 pg (28.0-33.3); Mean Corpuscular Volume 84.6 fL (83.0-100.0); Mean Platelet Volume 9.9 fL (9.4-12.4); Monocytes # 0.6 K/mcL (0.0-1.3); Monocytes % 8.9 %; Neutrophils # 4.3 K/mcL (1.6-8.9); Platelet Count 306 K/mcL (140-400); Red Cell Distribution Width 15.9 % (11.5-14.5); Segmented Neutrophils % 63.4 %
[2016-10-27 04:38] LABS: BUN/Creatinine Ratio 21 (6-26); Blood Urea Nitrogen 19 mg/dL (7-20); Calcium 9.1 mg/dL (8.6-10.8); Carbon Dioxide 27 mEq/L (19-29); Chloride 103 mEq/L (98-109); Glucose 94 mg/dL (70-99); Osmolality,Calculated 282 (280-300); Potassium 4.2 mEq/L (3.5-4.5); Sodium 135 mEq/L (136-145); eGFR For African Americans > 60 (> 60); eGFR For Non-African Americans > 60 (> 60)
[2016-10-27] MEDS: risperiDONE 1 MG TABLET PO SCH ×2 (08:57→20:16)
[2016-10-27] MEDS: Gabapentin 300 MG CAPSULE PO SCH ×3 (08:57→20:16)
--- NOTE | 2016-10-27 14:38 | Internal Med Progress Note ---
Date of Encounter: 10/27/16 Time of Encounter: 14:35 - Assessment and plan (1) Conversion reaction Current Visit: Yes Status: Acute Assessment and plan: Conversion disorder Patient is alert, but these choosing to avoid answering questions. Chest x-ray negative. Brain MRI negative. EEG negative. Urinalysis negative. Tox screen negative. Per emergency department report, psychiatry saw the patient and signed off on her and cleared her for outpatient follow-up. OT and PT have recommended ECF placement Per social welfare research worker, there appears to be an issue with guardianship so it may be quite some time until the patient is transferred. She is not safe to be discharged home in the meantime. She is noted to be speaking to a few select staff members. We will continue to monitor. Chest X-Ray 10/24/16 16:49 IMPRESSION: No evidence of acute disease. Brain MRI 10/25/16 12:50 IMPRESSION: 1. No acute intracranial abnormality. No acute infarct. 2. Mild global parenchymal volume loss. EEG impression: This EEG recording is civil rights representative of normal wakefulness. There is no evidence of epileptiform activity identified during the recording. (2) Acute kidney injury Current Visit: Yes Status: Acute Assessment and plan: Resolved (3) Adjustment reaction with anxiety and depression Current Visit: Yes Status: Acute (4) Behavioral disorder Current Visit: Yes Status: Chronic (5) Encephalopathy chronic Current Visit: Yes Status: Chronic (6) Mental retardation Current Visit: Yes Status: Chronic (7) Acute psychosis Current Visit: No Status: Acute (8) Depression Current Visit: No Status: Acute Qualifiers: Depression Type: major depressive disorder Major depression recurrence: recurrent Major depression episode severity: unspecified Qualified Code(s): F33.9 - Major depressive disorder, recurrent, unspecified - Time Spent With Patient Greater than 35 minutes - Subjective Interval history: The patient just repeats that she wants to go home, unable to complete review of systems she is not willing to talk. Appears to be in no distress - Constitutional Vitals: Temp Pulse Resp BP Pulse Ox 98.0 F 82 95 109/71 96 10/27/16 11:01 10/27/16 11:01 10/27/16 11:10/27/16 11:10/27/16 06:51 General appearance: Present: A&O X 0, disheveled, no acute distress. Absent: cooperative, answers questions appropriately Exam: Crusts and scalp resembling severe dandruff - Head Head exam: Present: atraumatic, normocephalic - Eye Eye exam: Present: PERRL, conjuntiva pink, sclera anicteric Pupils: Present: PERRL - Neck Neck exam general surgery: Present: supple, trachea midline. Absent: lymphadenopathy - Respiratory Respiratory exam: Present: CTAB. Absent: accessory muscle use, rales, rhonchi, wheezes - Cardiovascular Cardiovascular exam: Present: RRR, +S1, +S2. Absent: diastolic murmur, gallop, rubs, systolic murmur - GI/Abdominal GI/Abdominal exam: Present: normal bowel sounds, soft, no peritoneal signs. Absent: distended, tenderness - Extremities Exam Extremities exam: Present: warm, radial pulses palpable and symetrical. Absent : calf tenderness, cyanotic, pedal edema - Neurological Exam Neurological exam: Present: CN II-XII intact, oriented X3, no focal deficits. Absent: pronater drift, facial droop, speech deficit - Skin Skin exam: Present: dry, intact Internal Medicine: Result - Labs CBC & Chem 7: 10/27/16 03:43 10/27/16 03:43 Labs: Short CBC 10/27/16 Range/Units 03:43 WBC 6.7 (4.3-11.1) K/mcL Hgb 9.8 L (11.5-15.4) g/dL Hct 31.3 L (35.3-44.9) % Plt Count 306 (140-400) K/mcL Neutrophils # 4.3 (1.6-8.9) K/mcL BMP 10/27/16 03:43 Sodium 135 L Potassium 4.2 Chloride 103 Carbon Dioxide 27 BUN 19 Creatinine 0.91 Glucose 94 Calcium 9.1 Consult Discharge Plan - Plan Referrals: Roxana Rojas, MAGGIE [Primary Care Provider] -
[2016-10-27] MEDS: Melatonin 3 MG TABLET PO SCH (20:16)
[2016-10-28] MEDS: Gabapentin 300 MG CAPSULE PO SCH ×3 (10:51→21:31)
[2016-10-28] MEDS: risperiDONE 1 MG TABLET PO SCH ×2 (10:51→21:31)
--- NOTE | 2016-10-28 13:30 | Internal Med Progress Note ---
Date of Encounter: 10/28/16 Time of Encounter: 13:29 - Assessment and plan (1) Conversion reaction Current Visit: Yes Status: Acute Assessment and plan: Conversion disorder Patient is alert, but these choosing to avoid answering questions. Chest x-ray negative. Brain MRI negative. EEG negative. Urinalysis negative. Tox screen negative. Per emergency department report, psychiatry saw the patient and signed off on her and cleared her for outpatient follow-up. OT and PT have recommended ECF placement Per social professionals, there appears to be an issue with guardianship so it may be quite some time until the patient is transferred. She is not safe to be discharged home in the meantime. She is noted to be speaking to a few select staff members. We will continue to monitor. Chest X-Ray 10/24/16 16:49 IMPRESSION: No evidence of acute disease. Brain MRI 10/25/16 12:50 IMPRESSION: 1. No acute intracranial abnormality. No acute infarct. 2. Mild global parenchymal volume loss. EEG impression: This EEG recording is arborist representative of normal wakefulness. There is no evidence of epileptiform activity identified during the recording. (2) Acute kidney injury Current Visit: Yes Status: Acute Assessment and plan: Resolved (3) Adjustment reaction with anxiety and depression Current Visit: Yes Status: Acute (4) Behavioral disorder Current Visit: Yes Status: Chronic (5) Encephalopathy chronic Current Visit: Yes Status: Chronic (6) Mental retardation Current Visit: Yes Status: Chronic (7) Acute psychosis Current Visit: No Status: Acute (8) Depression Current Visit: No Status: Acute Qualifiers: Depression Type: major depressive disorder Major depression recurrence: recurrent Major depression episode severity: unspecified Qualified Code(s): F33.9 - Major depressive disorder, recurrent, unspecified - Time Spent With Patient Greater than 35 minutes - Subjective Interval history: The patient refuses to talk. The patient just repeated that she wanted to go home, unable to complete review of systems she is not willing to talk. Appears to be in no distress - Constitutional Vitals: Temp Pulse Resp BP Pulse Ox 98.0 F 75 17 104/67 99 10/28/16 11:17 10/28/16 11:17 10/28/16 11:17 10/28/16 11:17 10/28/16 11:17 General appearance: Present: A&O X 0, disheveled, no acute distress. Absent: cooperative, answers questions appropriately Exam: Nonverbal at the moment - Head Head exam: Present: atraumatic, normocephalic - Eye Eye exam: Present: PERRL, conjuntiva pink, sclera anicteric Pupils: Present: PERRL - Neck Neck exam general surgery: Present: supple, trachea midline. Absent: lymphadenopathy - Respiratory Respiratory exam: Present: CTAB. Absent: accessory muscle use, rales, rhonchi, wheezes - Cardiovascular Cardiovascular exam: Present: RRR, +S1, +S2. Absent: diastolic murmur, gallop, rubs, systolic murmur - GI/Abdominal GI/Abdominal exam: Present: normal bowel sounds, soft, no peritoneal signs. Absent: distended, tenderness - Extremities Exam Extremities exam: Present: warm, radial pulses palpable and symetrical. Absent : calf tenderness, cyanotic, pedal edema - Neurological Exam Neurological exam: Present: CN II-XII intact, no focal deficits. Absent: oriented X3, pronater drift, facial droop, speech deficit - Skin Skin exam: Present: dry, intact Internal Medicine: Result - Labs CBC & Chem 7: 10/27/16 03:43 10/27/16 03:43 Consult Discharge Plan - Plan Referrals: Roxana Rojas CNP [Primary Care Provider] -
[2016-10-28] MEDS: *HR* LORazepam 2 MG/ML VIAL IVP PRN (14:41)
[2016-10-28] MEDS: Melatonin 3 MG TABLET PO SCH (21:31)
--- NOTE | 2016-10-29 08:19 | Internal Med Progress Note ---
Date of Encounter: 10/29/16 Time of Encounter: 08:17 - Assessment and plan (1) Conversion reaction Current Visit: Yes Status: Acute Assessment and plan: Conversion disorder Patient is alert, but these choosing to avoid answering questions. Chest x-ray negative. Brain MRI negative. EEG negative. Urinalysis negative. Tox screen negative. Per emergency department report, psychiatry saw the patient and signed off on her and cleared her for outpatient follow-up. OT and PT have recommended ECF placement Per social media intern, there appears to be an issue with guardianship so it may be quite some time until the patient is transferred. She is not safe to be discharged home in the meantime. She is noted to be speaking to a few select staff members. We will continue to monitor. Submission to insurance for prior auth will occur today. Awaiting placement Chest X-Ray 10/24/16 16:49 IMPRESSION: No evidence of acute disease. Brain MRI 10/25/16 12:50 IMPRESSION: 1. No acute intracranial abnormality. No acute infarct. 2. Mild global parenchymal volume loss. EEG impression: This EEG recording is liability claims representative of normal wakefulness. There is no evidence of epileptiform activity identified during the recording. (2) Acute kidney injury Current Visit: Yes Status: Acute Assessment and plan: Resolved (3) Adjustment reaction with anxiety and depression Current Visit: Yes Status: Acute (4) Behavioral disorder Current Visit: Yes Status: Chronic (5) Encephalopathy chronic Current Visit: Yes Status: Chronic (6) Mental retardation Current Visit: Yes Status: Inactive (7) Acute psychosis Current Visit: No Status: Acute (8) Depression Current Visit: No Status: Acute Qualifiers: Depression Type: major depressive disorder Major depression recurrence: recurrent Major depression episode severity: unspecified Qualified Code(s): F33.9 - Major depressive disorder, recurrent, unspecified - Subjective Interval history: The patient still refuses to talk. The patient just repeated that she wanted to go home, unable to complete review of systems she is not willing to talk. Appears to be in no distress - Constitutional Vitals: Temp Pulse Resp BP Pulse Ox 98.0 F 77 17 107/71 95 10/29/16 07:17 10/29/16 07:17 10/29/16 07:17 10/29/16 07:17 10/29/16 07:17 General appearance: Present: A&O X 0, disheveled, no acute distress. Absent: cooperative, answers questions appropriately - Head Head exam: Present: atraumatic, normocephalic - Eye Eye exam: Present: PERRL, conjuntiva pink, sclera anicteric Pupils: Present: PERRL - Neck Neck exam general surgery: Present: supple, trachea midline. Absent: lymphadenopathy - Respiratory Respiratory exam: Present: CTAB. Absent: accessory muscle use, rales, rhonchi, wheezes - Cardiovascular Cardiovascular exam: Present: RRR, +S1, +S2. Absent: diastolic murmur, gallop, rubs, systolic murmur - GI/Abdominal GI/Abdominal exam: Present: normal bowel sounds, soft, no peritoneal signs. Absent: distended, tenderness - Extremities Exam Extremities exam: Present: warm, radial pulses palpable and symetrical. Absent : calf tenderness, cyanotic, pedal edema - Neurological Exam Neurological exam: Present: CN II-XII intact, no focal deficits. Absent: oriented X3, pronater drift, facial droop, speech deficit - Skin Skin exam: Present: dry, intact Internal Medicine: Result - Labs CBC & Chem 7: 10/27/16 03:43 10/27/16 03:43 Consult Discharge Plan - Plan Referrals: Roxana Rojas CNP [Primary Care Provider] -
[2016-10-29] MEDS: risperiDONE 1 MG TABLET PO SCH ×2 (08:56→21:24)
[2016-10-29] MEDS: Gabapentin 300 MG CAPSULE PO SCH ×3 (08:57→21:24)
[2016-10-29] MEDS: *HR* LORazepam 2 MG/ML VIAL IVP PRN (15:03)
[2016-10-29] MEDS: Melatonin 3 MG TABLET PO SCH (21:24)
[2016-10-30] MEDS: risperiDONE 1 MG TABLET PO SCH ×2 (08:25→19:43)
[2016-10-30] MEDS: Gabapentin 300 MG CAPSULE PO SCH ×3 (08:25→19:43)
[2016-10-30] MEDS: *HR* LORazepam 2 MG/ML VIAL IVP PRN ×2 (13:07→19:43)
--- NOTE | 2016-10-30 18:47 | Internal Med Progress Note ---
Date of Encounter: 10/30/16 Time of Encounter: 18:45 - Assessment and plan (1) Conversion reaction Current Visit: Yes Status: Acute (2) Delirium due to conditions classified elsewhere Current Visit: Yes Status: Acute (3) Behavioral disorder Current Visit: Yes Status: Chronic Assessment and plan: cont mood stabilizers, antipsychotics and anxiolytics. pt cleared for outpatient care by psych follow up with social service for placement - Subjective Interval history: pt reports wanting to go home, but lives with Dad who says he cannot take care of her due to her psych problems. - Constitutional Vitals: Temp Pulse Resp BP Pulse Ox 98.0 F 80 15 105/68 98 10/30/16 16:01 10/30/16 16:01 10/30/16 16:01 10/30/16 16:01 10/30/16 16:01 General appearance: Present: A&O X 2, no acute distress. Absent: cooperative, answers questions appropriately - Head Head exam: Present: atraumatic, normocephalic - Eye Eye exam: Present: PERRL, conjuntiva pink, sclera anicteric Pupils: Present: PERRL - Neck Neck exam general surgery: Present: supple, trachea midline. Absent: lymphadenopathy - Respiratory Respiratory exam: Present: CTAB. Absent: accessory muscle use, rales, rhonchi, wheezes - Cardiovascular Cardiovascular exam: Present: RRR, +S1, +S2. Absent: diastolic murmur, gallop, rubs, systolic murmur - GI/Abdominal GI/Abdominal exam: Present: normal bowel sounds, soft, no peritoneal signs. Absent: distended, tenderness - Extremities Exam Extremities exam: Present: warm, radial pulses palpable and symetrical. Absent : calf tenderness, cyanotic, pedal edema - Neurological Exam Neurological exam: Present: CN II-XII intact, oriented X3, no focal deficits. Absent: pronater drift, facial droop, speech deficit - Skin Skin exam: Present: dry, intact Internal Medicine: Result - Labs CBC & Chem 7: 10/27/16 03:43 10/27/16 03:43 Consult Discharge Plan - Plan Referrals: Roxana Rojas, SUPERVISOR FELTING [Primary Care Provider] -
[2016-10-30] MEDS ORDERED: Water for inj. (sterile) 10 ML IV ONE (19:40)
[2016-10-30] MEDS: Melatonin 3 MG TABLET PO SCH (19:43)
[2016-10-31] MEDS: risperiDONE 1 MG TABLET PO SCH ×2 (08:51→21:39)
[2016-10-31] MEDS: Gabapentin 300 MG CAPSULE PO SCH ×3 (08:51→21:39)
[2016-10-31] MEDS: *HR* LORazepam 2 MG/ML VIAL IVP PRN ×2 (11:54→18:20)
--- NOTE | 2016-10-31 14:59 | Physician Discharge Referral ---
- Diagnosis (1) Conversion reaction Status: Acute (2) Delirium due to conditions classified elsewhere Status: Acute (3) Behavioral disorder Status: Chronic - Transfer Medications Home Medications: Citalopram [CeleXA] 20 mg PO DAILY 10/24/16 [History] Gabapentin [Neurontin] 300 mg PO TID #60 capsule 10/31/16 [Rx] Lisinopril [Zestril] 5 mg PO DAILY #30 tablet 10/31/16 [Rx] RisperiDONE [RisperDAL] 1 mg PO BID #60 tablet 10/31/16 [Rx] TraZODone 50 mg PO HS PRN #60 tablet 10/31/16 [Rx] Allergies/Adverse Reactions: Allergies No Known Allergies Allergy (Verified 12/23/15 19:25) - Respiratory Orders Smoking Cessation: Smoking cessation has been advised. For more information, call the [place] Tobacco Quit Line at 8-831-GZMINOW. CERTIFICATION: I certify that the transfer of the above named patient to an Extended Care Facility is necessary for the continuing treatment of the diagnosis listed. The above information is true and accurate reflection of patient's current condition. Confidential - Redisclosure prohibited without a patient's written consent.
--- NOTE | 2016-10-31 15:35 | Internal Med Progress Note ---
Date of Encounter: 10/31/16 Time of Encounter: 15:35 - Assessment and plan (1) Conversion reaction Current Visit: Yes Status: Acute (2) Delirium due to conditions classified elsewhere Current Visit: Yes Status: Acute (3) Behavioral disorder Current Visit: Yes Status: Chronic Assessment and plan: cont mood stabilizers, antipsychotics and anxiolytics. pt cleared for outpatient care by psych follow up with social service for placement - Subjective Interval history: pt reports wanting to go home again today, lives with Dad who says he cannot take care of her due to her psych problems. - Constitutional Vitals: Temp Pulse Resp BP Pulse Ox 98.7 F 101 18 99/65 96 10/31/16 14:51 10/31/16 14:51 10/31/16 14:51 10/31/16 14:51 10/31/16 14:51 General appearance: Present: A&O X 2, no acute distress. Absent: cooperative, answers questions appropriately - Head Head exam: Present: atraumatic, normocephalic - Eye Eye exam: Present: PERRL, conjuntiva pink, sclera anicteric Pupils: Present: PERRL - Neck Neck exam general surgery: Present: supple, trachea midline. Absent: lymphadenopathy - Respiratory Respiratory exam: Present: CTAB. Absent: accessory muscle use, rales, rhonchi, wheezes - Cardiovascular Cardiovascular exam: Present: RRR, +S1, +S2. Absent: diastolic murmur, gallop, rubs, systolic murmur - GI/Abdominal GI/Abdominal exam: Present: normal bowel sounds, soft, no peritoneal signs. Absent: distended, tenderness - Extremities Exam Extremities exam: Present: warm, radial pulses palpable and symetrical. Absent : calf tenderness, cyanotic, pedal edema - Neurological Exam Neurological exam: Present: CN II-XII intact, oriented X3, no focal deficits. Absent: pronater drift, facial droop, speech deficit - Skin Skin exam: Present: dry, intact Internal Medicine: Result - Labs CBC & Chem 7: 10/27/16 03:43 10/27/16 03:43 Consult Discharge Plan - Plan Referrals: Roxana Rojas, STORE RECEIVING SPECIALIST [Primary Care Provider] -
[2016-10-31] MEDS: Melatonin 3 MG TABLET PO SCH (21:39)
[2016-11-01] MEDS: risperiDONE 1 MG TABLET PO SCH ×2 (09:12→20:46)
[2016-11-01] MEDS: Gabapentin 300 MG CAPSULE PO SCH ×3 (09:12→20:46)
[2016-11-01] MEDS: *HR* LORazepam 2 MG/ML VIAL IVP PRN ×2 (13:02→16:05)
--- NOTE | 2016-11-01 18:36 | Internal Med Progress Note ---
Date of Encounter: 11/01/16 Time of Encounter: 18:35 - Assessment and plan (1) Conversion reaction Current Visit: Yes Status: Acute (2) Delirium due to conditions classified elsewhere Current Visit: Yes Status: Acute (3) Behavioral disorder Current Visit: Yes Status: Acute Assessment and plan: cont mood stabilizers, antipsychotics and anxiolytics. pt cleared for outpatient follow up by psych follow up with social service for placement - Subjective Interval history: pt reports wanting to go home again today, lives with Dad who says he cannot take care of her due to her psych problems. - Constitutional Vitals: Temp Pulse Resp BP Pulse Ox 98.3 F 108 20 106/73 95 11/01/16 15:53 11/01/16 15:53 11/01/16 15:53 11/01/16 15:53 11/01/16 15:53 General appearance: Present: A&O X 2, no acute distress. Absent: cooperative, answers questions appropriately - Head Head exam: Present: atraumatic, normocephalic - Eye Eye exam: Present: PERRL, conjuntiva pink, sclera anicteric Pupils: Present: PERRL - Neck Neck exam general surgery: Present: supple, trachea midline. Absent: lymphadenopathy - Respiratory Respiratory exam: Present: CTAB. Absent: accessory muscle use, rales, rhonchi, wheezes - Cardiovascular Cardiovascular exam: Present: RRR, +S1, +S2. Absent: diastolic murmur, gallop, rubs, systolic murmur - GI/Abdominal GI/Abdominal exam: Present: normal bowel sounds, soft, no peritoneal signs. Absent: distended, tenderness - Extremities Exam Extremities exam: Present: warm, radial pulses palpable and symetrical. Absent : calf tenderness, cyanotic, pedal edema - Neurological Exam Neurological exam: Present: CN II-XII intact, oriented X3, no focal deficits. Absent: pronater drift, facial droop, speech deficit - Skin Skin exam: Present: dry, intact Internal Medicine: Result - Labs CBC & Chem 7: 10/27/16 03:43 10/27/16 03:43 Consult Discharge Plan - Plan Referrals: Roxana Rojas, DIRECTOR PUBLIC POLICY [Primary Care Provider] -
[2016-11-01] MEDS: Melatonin 3 MG TABLET PO SCH (20:46)
[2016-11-02] MEDS: risperiDONE 1 MG TABLET PO SCH ×2 (08:51→21:16)
[2016-11-02] MEDS: Gabapentin 300 MG CAPSULE PO SCH ×3 (08:51→21:16)
[2016-11-02] MEDS: *HR* LORazepam 2 MG/ML VIAL IVP PRN ×2 (12:20→16:14)
--- NOTE | 2016-11-02 19:20 | Internal Med Progress Note ---
Date of Encounter: 11/02/16 Time of Encounter: 16:00 - Assessment and plan (1) Conversion reaction Current Visit: Yes Status: Acute (2) Delirium due to conditions classified elsewhere Current Visit: Yes Status: Acute (3) Behavioral disorder Current Visit: Yes Status: Acute Assessment and plan: cont mood stabilizers, antipsychotics and anxiolytics. pt cleared for outpatient follow up by psych awaiting placement, follow up with social services director. - Subjective Interval history: pt reports wanting to go home again today, lives with Dad who says he cannot take care of her due to her psych problems. - Constitutional Vitals: Temp Pulse Resp BP Pulse Ox 98.2 F 96 16 109/71 98 11/02/16 18:46 11/02/16 18:46 11/02/16 18:46 11/02/16 18:46 11/02/16 18:46 General appearance: Present: A&O X 2, no acute distress. Absent: cooperative, answers questions appropriately - Head Head exam: Present: atraumatic, normocephalic - Eye Eye exam: Present: PERRL, conjuntiva pink, sclera anicteric Pupils: Present: PERRL - Neck Neck exam general surgery: Present: supple, trachea midline. Absent: lymphadenopathy - Respiratory Respiratory exam: Present: CTAB. Absent: accessory muscle use, rales, rhonchi, wheezes - Cardiovascular Cardiovascular exam: Present: RRR, +S1, +S2. Absent: diastolic murmur, gallop, rubs, systolic murmur - GI/Abdominal GI/Abdominal exam: Present: normal bowel sounds, soft, no peritoneal signs. Absent: distended, tenderness - Extremities Exam Extremities exam: Present: warm, radial pulses palpable and symetrical. Absent : calf tenderness, cyanotic, pedal edema - Neurological Exam Neurological exam: Present: CN II-XII intact, oriented X3, no focal deficits. Absent: pronater drift, facial droop, speech deficit - Skin Skin exam: Present: dry, intact Internal Medicine: Result - Labs CBC & Chem 7: 10/27/16 03:43 10/27/16 03:43 Consult Discharge Plan - Plan Referrals: Roxana Rojas, MAGGIE [Primary Care Provider] -
[2016-11-02] MEDS: Melatonin 3 MG TABLET PO SCH (21:16)
[2016-11-03] MEDS: Gabapentin 300 MG CAPSULE PO SCH ×3 (09:48→22:32)
[2016-11-03] MEDS: risperiDONE 1 MG TABLET PO SCH ×2 (09:48→22:32)
--- NOTE | 2016-11-03 10:18 | Internal Med Progress Note ---
Date of Encounter: 10/25/16 Time of Encounter: 15:35 - Assessment and plan (1) Behavioral disorder Current Visit: Yes Status: Acute Assessment and plan: With sudden change in her condition , Cannot R/O CVA or seizure disorder , will check EEG, and MRI - Subjective Interval history: Late entry , Patient seen on 10/25/2016 @330 PM. Patient is alert in no distress , Not responding to any Questions,responding to some commands - Constitutional Vitals: Temp Pulse Resp BP Pulse Ox 98.6 F 99 17 107/75 97 11/03/16 07:35 11/03/16 07:35 11/03/16 07:35 11/03/16 07:35 11/03/16 07:35 General appearance: Present: no acute distress. Absent: cooperative, answers questions appropriately - Head Head exam: Present: atraumatic, normocephalic - Respiratory Respiratory exam: Present: CTAB. Absent: accessory muscle use, rales, rhonchi, wheezes - Cardiovascular Cardiovascular exam: Present: RRR, +S1, +S2. Absent: diastolic murmur, gallop, rubs, systolic murmur - GI/Abdominal GI/Abdominal exam: Present: normal bowel sounds, soft, no peritoneal signs. Absent: distended, tenderness Internal Medicine: Result - Labs CBC & Chem 7: 10/27/16 03:43 10/27/16 03:43 Consult Discharge Plan - Plan Referrals: Roxana Rojas CNP [Primary Care Provider] -
--- NOTE | 2016-11-03 10:28 | Internal Med Progress Note ---
Date of Encounter: 11/03/16 Time of Encounter: 10:30 - Assessment and plan (1) Behavioral disorder Current Visit: Yes Status: Acute (2) Adjustment reaction with anxiety and depression Current Visit: Yes Status: Acute (3) Conversion reaction Current Visit: Yes Status: Acute Assessment and plan: Conversion disorder Patient is alert, but these choosing to avoid answering questions. Chest x-ray negative. Brain MRI negative. EEG negative. Urinalysis negative. Tox screen negative. Per emergency department report, psychiatry saw the patient and signed off on her and cleared her for outpatient follow-up. Continue physical therapy occupational therapy. Awaiting placement. Will discuss with certified social workers in health care as well as may consider family meeting for further planning (4) Dyslipidemia Current Visit: Yes Status: Acute Assessment and plan: Add statin (5) Memory loss Current Visit: Yes Status: Acute Assessment and plan: Secondary to baseline MRD. We will check vitamin B12 and 25-hydroxy vitamin D - Time Spent With Patient 25 - 35 minutes - Subjective Interval history: Patient is more alert today responded to some commands on some question with a short on Saturdays only to question that she wanted to go home she on Saturday what she ate. Patient was able get up and walk with minimal assistance. Patient is in no distress - Constitutional Vitals: Temp Pulse Resp BP Pulse Ox 98.6 F 99 17 107/75 97 11/03/16 07:35 11/03/16 07:35 11/03/16 07:35 11/03/16 07:35 11/03/16 07:35 General appearance: Present: cooperative, no acute distress - Respiratory Respiratory exam: Present: CTAB. Absent: accessory muscle use, rales, rhonchi, wheezes - Cardiovascular Cardiovascular exam: Present: RRR, +S1, +S2. Absent: diastolic murmur, gallop, rubs, systolic murmur - GI/Abdominal GI/Abdominal exam: Present: normal bowel sounds, soft, no peritoneal signs. Absent: distended, tenderness - Neurological Exam Neurological exam: Present: CN II-XII intact, oriented X3, no focal deficits. Absent: pronater drift, facial droop, speech deficit - Skin Skin exam: Present: dry, intact Internal Medicine: Result - Labs CBC & Chem 7: 10/27/16 03:43 10/27/16 03:43 Consult Discharge Plan - Plan Referrals: Roxana Rojas CNP [Primary Care Provider] -
[2016-11-03] MEDS: *HR* LORazepam 2 MG/ML VIAL IVP PRN ×3 (12:08→23:56)
[2016-11-03] MEDS ORDERED: Water for inj. (sterile) 10 ML IV ONE (12:08)
[2016-11-03 12:36] LABS: BUN/Creatinine Ratio 24 (6-26); Blood Urea Nitrogen 21 mg/dL (7-20); Calcium 9.5 mg/dL (8.6-10.8); Carbon Dioxide 25 mEq/L (19-29); Chloride 100 mEq/L (98-109); Glucose 129 mg/dL (70-99); Osmolality,Calculated 285 (280-300); Potassium 4.3 mEq/L (3.5-4.5); Sodium 135 mEq/L (136-145); eGFR For African Americans > 60 (> 60); eGFR For Non-African Americans > 60 (> 60)
[2016-11-03] MEDS: Melatonin 3 MG TABLET PO SCH (22:32)
[2016-11-04] MEDS: risperiDONE 1 MG TABLET PO SCH ×2 (09:59→21:52)
[2016-11-04] MEDS: Gabapentin 300 MG CAPSULE PO SCH ×3 (10:00→21:52)
--- NOTE | 2016-11-04 14:15 | Internal Med Progress Note ---
Date of Encounter: 11/04/16 Time of Encounter: 13:30 - Assessment and plan (1) Behavioral disorder Current Visit: Yes Status: Acute (2) Adjustment reaction with anxiety and depression Current Visit: Yes Status: Acute (3) Conversion reaction Current Visit: Yes Status: Acute Assessment and plan: Conversion disorder Patient is alert, but these choosing to avoid answering questions. Chest x-ray negative. Brain MRI negative. EEG negative. Urinalysis negative. Tox screen negative. Per emergency department report, psychiatry saw the patient and signed off on her and cleared her for outpatient follow-up. Continue physical therapy occupational therapy. Awaiting placement. Discussed with the social media manager yesterday. With her need of more social support than she can have at home, consider placement (4) Dyslipidemia Current Visit: Yes Status: Acute (5) Memory loss Current Visit: Yes Status: Acute Assessment and plan: Possible secondary to vitamin B12 deficiency, we will start vitamin B12 1000 intramuscular daily for 7 days then weekly for 4 weeks then continue oral . supplement after that - Time Spent With Patient less than 15 minutes (Possible discharge next 24 hours awaiting placement) - Subjective Interval history: Patient mental status continued to improve, uncertain more question, more interaction with conversation. Want to go home. she was able to get up without assistance and walk - Constitutional Vitals: Temp Pulse Resp BP Pulse Ox 98.5 F 84 16 109/73 96 11/03/16 20:52 11/03/16 20:52 11/03/16 20:52 11/03/16 20:52 11/03/16 20:52 General appearance: Present: cooperative, no acute distress - Neck Neck exam general surgery: Present: supple, trachea midline. Absent: lymphadenopathy - Respiratory Respiratory exam: Present: CTAB. Absent: accessory muscle use, rales, rhonchi, wheezes - Cardiovascular Cardiovascular exam: Present: RRR, +S1, +S2. Absent: diastolic murmur, gallop, rubs, systolic murmur - GI/Abdominal GI/Abdominal exam: Present: normal bowel sounds, soft, no peritoneal signs. Absent: distended, tenderness - Extremities Exam Extremities exam: Present: warm, radial pulses palpable and symetrical. Absent : calf tenderness, cyanotic, pedal edema Internal Medicine: Result - Labs CBC & Chem 7: 10/27/16 03:43 11/03/16 11:51 Consult Discharge Plan - Plan Referrals: Roxana Rojas, MAGGIE [Primary Care Provider] -
[2016-11-04] MEDS: Cyanocobalamin (B-12) 1,000 MCG/ML VIAL IM SCH (15:42)
[2016-11-04] MEDS: *HR* LORazepam 2 MG/ML VIAL IVP PRN ×2 (16:40→21:52)
[2016-11-04] MEDS: Melatonin 3 MG TABLET PO SCH (21:52)
[2016-11-05] MEDS: Cyanocobalamin (B-12) 1,000 MCG/ML VIAL IM SCH (08:52)
[2016-11-05] MEDS: risperiDONE 1 MG TABLET PO SCH ×2 (08:56→23:26)
[2016-11-05] MEDS: Gabapentin 300 MG CAPSULE PO SCH ×3 (08:56→23:26)
[2016-11-05] MEDS: *HR* LORazepam 2 MG/ML VIAL IVP PRN ×2 (14:04→17:00)
--- NOTE | 2016-11-05 16:06 | Internal Med Progress Note ---
Date of Encounter: 11/05/16 Time of Encounter: 14:00 - Assessment and plan (1) Behavioral disorder Current Visit: Yes Status: Acute Assessment and plan: Pt awaiting placement, pt is MRDD, family unable to care for her (2) Dyslipidemia Current Visit: Yes Status: Chronic Assessment and plan: chronic - Time Spent With Patient 25 - 35 minutes - Constitutional Vitals: Temp Pulse Resp BP Pulse Ox 98.2 F 105 16 111/78 96 11/05/16 14:48 11/05/16 14:48 11/05/16 14:48 11/05/16 14:48 11/05/16 14:48 General appearance: Present: cooperative, A&O X 3, no acute distress - Respiratory Respiratory exam: Present: CTAB - Cardiovascular Cardiovascular exam: Present: RRR, +S1, +S2 - GI/Abdominal GI/Abdominal exam: Present: normal bowel sounds, soft - Extremities Exam Extremities exam: Present: warm, radial pulses palpable and symetrical - Neurological Exam Neurological exam: Present: no focal deficits Internal Medicine: Result - Labs CBC & Chem 7: 10/27/16 03:43 11/03/16 11:51 Consult Discharge Plan - Plan Referrals: Roxana Rojas CNP [Primary Care Provider] -
[2016-11-05] MEDS: Melatonin 3 MG TABLET PO SCH (23:25)
[2016-11-06] MEDS: Cyanocobalamin (B-12) 1,000 MCG/ML VIAL IM SCH (10:12)
[2016-11-06] MEDS: Gabapentin 300 MG CAPSULE PO SCH ×3 (10:12→21:45)
[2016-11-06] MEDS: risperiDONE 1 MG TABLET PO SCH ×2 (10:12→21:45)
[2016-11-06] MEDS: *HR* LORazepam 2 MG/ML VIAL IVP PRN ×2 (10:25→14:35)
--- NOTE | 2016-11-06 12:05 | Internal Med Progress Note ---
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 Qualifiers: Qualified Code(s): R41.82 - Altered mental status, unspecified (2) Psychosis Current Visit: Yes Status: Acute Assessment and plan: Con't risperdal, haldol IV given twice today for agitation. Qualifiers: Qualified Code(s): F29 - Unspecified psychosis not due to a substance or known physiological condition (3) DVT prophylaxis Current Visit: Yes Status: Acute Assessment and plan: IPC. - Subjective Interval history: Pt is A and O x0, not able to communicate well, cannot answer questions. - Constitutional Vitals: Temp Pulse Resp BP Pulse Ox 98.2 F 119 15 107/72 96 11/06/16 08:52 11/06/16 08:52 11/06/16 08:52 11/06/16 08:52 11/06/16 08:52 General appearance: Present: A&O X 0, no acute distress. Absent: cooperative, answers questions appropriately - Head Head exam: Present: atraumatic, normocephalic - Eye Eye exam: Present: PERRL, conjuntiva pink, sclera anicteric Pupils: Present: PERRL - Neck Neck exam general surgery: Present: supple, trachea midline. Absent: lymphadenopathy - Respiratory Respiratory exam: Present: CTAB. Absent: accessory muscle use, rales, rhonchi, wheezes - Cardiovascular Cardiovascular exam: Present: RRR, +S1, +S2. Absent: diastolic murmur, gallop, rubs, systolic murmur - GI/Abdominal GI/Abdominal exam: Present: normal bowel sounds, soft, no peritoneal signs. Absent: distended, tenderness - Extremities Exam Extremities exam: Present: warm, radial pulses palpable and symetrical. Absent : calf tenderness, cyanotic, pedal edema - Neurological Exam Neurological exam: Present: altered, CN II-XII intact, no focal deficits. Absent: alert, oriented X3, pronater drift, facial droop, speech deficit - Skin Skin exam: Present: dry, intact Internal Medicine: Result - Labs CBC & Chem 7: 10/27/16 03:43 11/03/16 11:51 Consult Discharge Plan - Plan Referrals: Roxana Rojas CNP [Primary Care Provider] - <Don Toure - Last Filed: 11/06/16 17:23> - Assessment and plan (1) Acute metabolic encephalopathy Current Visit: Yes Status: Acute (2) Anemia Current Visit: Yes Status: Acute Qualifiers: Anemia type: unspecified type Qualified Code(s): D64.9 - Anemia, unspecified (3) Psychosis Current Visit: Yes Status: Acute Qualifiers: Psychosis type: other Qualified Code(s): F28 - Other psychotic disorder not due to a substance or known physiological condition - Constitutional Vitals: Temp Pulse Resp BP Pulse Ox 99.0 F 122 15 130/84 96 11/06/16 16:15 11/06/16 16:15 11/06/16 16:15 11/06/16 16:15 11/06/16 16:15 Internal Medicine: Result - Labs CBC & Chem 7: 11/06/16 12:26 11/03/16 11:51 Labs: Short CBC 11/06/16 Range/Units 12:26 WBC 7.7 (4.3-11.1) K/mcL Hgb 10.9 L (11.5-15.4) g/dL Hct 34.2 L (35.3-44.9) % Plt Count 325 (140-400) K/mcL Neutrophils # 5.4 (1.6-8.9) K/mcL - Attending Attestation I examined this patient and my medical decision-making was reviewed with the Resident Physician 11/06/16. I agree with the documented findings, disposition and treatment plan as described except to the extent set forth below. Ms. Peacock is currently admitted for acute encephalopathy. She is currently awaiting placement. Today she has had further work up of MRI findings. Ms. Peacock wants to leave. Denies pain or headache. No cough. No CP. Exam Alert. Agitated Mucus membranes dry Heart reg I/P 1. Acute encephalopathy - check ESR, CRP, CANDI Further diagnoses and plan as above.
[2016-11-06] MEDS ORDERED: Haloperidol Lactate 5 MG/ML VIAL IVP ONE ×2 (12:29→14:34)
[2016-11-06 16:44] LABS: Basophils % 0.4 %; Eosinophils # 0.1 K/mcL (0.0-0.6); Eosinophils % 1.3 %; Hematocrit 34.2 % (35.3-44.9); Hemoglobin 10.9 g/dL (11.5-15.4); Immature Granulocytes % 0.4 % (0-4); Lymphocytes # 1.4 K/mcL (0.6-4.6); Lymphocytes % 18.8 %; Mean Corpuscular HGB Conc 31.9 g/dL (31.6-35.5); Mean Corpuscular Volume 84.7 fL (83.0-100.0); Mean Platelet Volume 10.2 fL (9.4-12.4); Monocytes # 0.6 K/mcL (0.0-1.3); Monocytes % 8.1 %; Neutrophils # 5.4 K/mcL (1.6-8.9); Platelet Count 325 K/mcL (140-400); Red Blood Count 4.04 M/mcL (3.82-4.97); Red Cell Distribution Width 15.9 % (11.5-14.5)
--- NOTE | 2016-11-06 17:47 | Neurology - Consult Note ---
Date of Encounter: 11/06/16 Time of Encounter: 17:45 Assessment and Plan (1) Altered mental status Current Visit: Yes Status: Acute I agree her symptoms are psychiatric in origin. MRI of brain findings of few nonspecific T2/FLAIR hyperintensity area very mild and limited and this is considered of no clinical significance and should not cause her clinical symptoms. Mild diffuse loss of brain parenchyma can be seen in patients with long standing psychiatric disorder indeed. Would not recommend further neurological testing. Qualifiers: Altered mental status type: unspecified Qualified Code(s): R41.82 - Altered mental status, unspecified History of Present Illness Chief complaint: Abnormal MRI of brain findings HPI: Ms. Peacock is a 46 year old female 46 year old woman with PMH history significant for psychiatric condition, mental retardation, who was initially admitted here at [facility] 10/24/2015 due to acute psychiatric symptoms. Evaluated and treated by medical team and psychiatry. Patient apparently has no focal neurological deficits, but psychiatric symptoms characterized by staring spells episodes of nonverbal, behavioral changes. Able to walk and move with weakness. No seizure activity noted. Patient today is crying and wanting to go home and 'just like his dad'. Neurology was consulted due to MRI of brain report of finding of "A few nonspecific foci of T2 FLAIR hyperintensity air seen within the supratentorial white matter. Diagnostic considerations include demyelinating lesions, vasculitis or perhaps early chronic microvascular ischemic change." I did personally review the MRI of brain images and with due respect of the impression made by Radiology my impression is that the patient's brain MRI is unremarkable and the finding of these few nonspecific T2/FLAIR changes are of no clinical significance. Patient also completed routine EEG which showed essentially normal study At the time of this interview, patient is wanting to go home and denies any neurological discomforts. . Says that she wants to go home and 'just like his dad'. Is able to walk and wonder in the lobby. Past Med Surg Social Fam HX - Past Medical History Medical history: arthritis, hypertension, other (Mental retardation) Psychiatric history: anxiety, depression, previous psychiatric hospitalization, other - Past Surgical History Surgical History: , other - Social History Smoking Status: Never smoker Smokeless Tobacco Status: No Alcohol use: none Drug use: none - Family History Father History Unknown: Yes Medications and Allergies Citalopram [CeleXA] 20 mg PO DAILY 10/24/16 [History] Gabapentin [Neurontin] 300 mg PO TID #60 capsule 10/31/16 [Rx] Lisinopril [Zestril] 5 mg PO DAILY #30 tablet 10/31/16 [Rx] RisperiDONE [RisperDAL] 1 mg PO BID #60 tablet 10/31/16 [Rx] TraZODone 50 mg PO HS PRN #60 tablet 10/31/16 [Rx] Allergies No Known Allergies Allergy (Verified 12/23/15 19:25) All Systems: A 10-system review of systems was performed and is negative for pertinent findings except as documented above in the HPI. 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, hip flexors, tibialis Anterior, quadriceps, toe extension (EHL), plantarflexion Motor examination - left side: 5/5: deltoids, biceps, triceps, wrist flexion, wrist extension, hip flexors, supervisor major appliance assembly, quadriceps, tibialis Anterior, toe extension (EHL), plantarflexion Detailed sensory examination: intact Posture: other (none) Reflex and gait examination: other (Gait appears normal.) Reflexes: Biceps: 1+, Triceps: 1+, Brachioradialis: 1+, Patella: 1+, Achilles: 1 + Mental Status Examination: awake, alert, oriented to person, oriented to place, oriented to time, follows commands appropriately, answers questions appropriately, no agnosia, no aphasia, no aproxia Cranial nerve examination: PERRL, EOMI, visual lepe intact, corneal reflexes brisk symmetrically, sensory to face intact, mastication intact, no facial asymmetry is present, no dysarthria, hearing is intact symmetrically, soft palate elevates bilaterally upon phonation, gag reflex intact, flexes SCM and trapezius muscles symmetrically with full power, tongue protrudes midline, no atrophy or facial fasiculations present Results - Laboratory Findings CBC and BMP: 11/06/16 12:26 11/03/16 11:51 Abnormal lab findings: Abnormal lab results Hgb 10.9 g/dL (11.5-15.4) L 11/06/16 12:26 Hct 34.2 % (35.3-44.9) L 11/06/16 12:26 MCH 27.0 pg (28.0-33.3) L 11/06/16 12:26 RDW 15.9 % (11.5-14.5) H 11/06/16 12:26 ESR 128 mm/hr (0-15) H 11/06/16 12:26 Sodium 135 mEq/L (136-145) L 11/03/16 11:51 BUN 21 mg/dL (7-20) H 11/03/16 11:51 Glucose 129 mg/dL (70-99) H 11/03/16 11:51 C-Reactive Protein 21 mg/L (Less than 5) H 11/06/16 12:26 Vitamin B12 190 pg/mL (213-816) L 11/03/16 11:51 25-OH Vitamin D Total 20 ng/mL (30-80) L 11/03/16 11:51 Ur Specific Hubbard 1.027 (1.010-1.025) H 10/24/16 17:08 Urine Ketones 15 mg/dL (Negative) H 10/24/16 17:08 Urine Bilirubin Small (Negative) H 10/24/16 17:08 Ur Squamous Epith Cells Many per lpf (None-Few) H 10/24/16 17:08 Urine Bacteria Moderate per hpf (None-Few) H 10/24/16 17:08 Salicylates < 5.0 mg/dL (15-30) L 10/24/16 17:25 Acetaminophen < 1.0 mcg/mL (10-30) L 10/24/16 17:25 Consult Discharge Plan - Plan Referrals: Roxana Rojas, MAGGIE [Primary Care Provider] -
[2016-11-06] MEDS: Melatonin 3 MG TABLET PO SCH (21:45)
[2016-11-06 23:37] VITALS: BP 122/82
[2016-11-07] MEDS: predniSONE 20 MG TABLET PO SCH ×2 (05:09→09:24)
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
--- NOTE | 2016-11-07 08:31 | Physician Discharge Referral ---
<Сергей Mckeon - Last Filed: 11/07/16 09:56> [facility] Referral Info Transfer To: SNF Provider in Charge: Dr. Toure Provider in Charge after Transfer: PCP Institutional Level of Care: Skilled - Diagnosis (1) Altered mental status Priority: Primary Status: Acute (2) Psychosis Status: Acute (3) DVT prophylaxis Status: Acute - Transfer Medications Prescriptions: Cyanocobalamin (B-12) [Vitamin B12] 1,000 mcg IM DAILY 30 Days Home Medications: Citalopram [CeleXA] 20 mg PO DAILY 10/24/16 [History] Gabapentin [Neurontin] 300 mg PO TID #60 capsule 10/31/16 [Rx] Lisinopril [Zestril] 5 mg PO DAILY #30 tablet 10/31/16 [Rx] RisperiDONE [RisperDAL] 1 mg PO BID #60 tablet 10/31/16 [Rx] TraZODone 50 mg PO HS PRN #60 tablet 10/31/16 [Rx] Cyanocobalamin (B-12) [Vitamin B12] 1,000 mcg IM DAILY 30 Days 11/07/16 [Rx] Ergocalciferol (VITAMIN D2) [Drisdol (50,000 Unit)] 50,000 unit PO QWEEK #4 capsule 11/07/16 [Rx] Allergies/Adverse Reactions: Allergies No Known Allergies Allergy (Verified 12/23/15 19:25) - Respiratory Orders None Smoking Cessation: Smoking cessation has been advised. For more information, call the [place] Tobacco Quit Line at 8-455-TEQT-NOW. - Ancillary Orders May use pressure relief devices daily prn, May go on FANY w/family/respon republican w /meds at nurse discretion PRN, May consult with Dentist, Pipe Jeeper, Assistant Merchandise Manager PRN - Advance Directives Code Status: Full Code - Mobility Orders Ambulate (fall precaution) - Rehabiliation Orders Rehab Potential: Fair Rehab Orders: ROM Exercises - Treatments Skin tear care topically daily PRN per policy, May check for fecal impaction rectally daily PRN, Fleet enema rectally every other day PRN cleansing purposes - Diet Orders Regular CERTIFICATION: I certify that the transfer of the above named patient to an Extended Care Facility is necessary for the continuing treatment of the diagnosis listed. The above information is true and accurate reflection of patient's current condition. Confidential - Redisclosure prohibited without a patient's written consent. <Don Toure - Last Filed: 11/07/16 14:10> - Diagnosis (1) Acute metabolic encephalopathy Status: Acute (2) Anemia Status: Acute (3) Psychosis Status: Acute - Respiratory Orders Smoking Cessation: Smoking cessation has been advised. For more information, call the [place] Tobacco Quit Line at 0-972-XEQENOW. CERTIFICATION: I certify that the transfer of the above named patient to an Extended Care Facility is necessary for the continuing treatment of the diagnosis listed. The above information is true and accurate reflection of patient's current condition. Confidential - Redisclosure prohibited without a patient's written consent.
[2016-11-07] MEDS: Cyanocobalamin (B-12) 1,000 MCG/ML VIAL IM SCH (09:24)
[2016-11-07] MEDS: risperiDONE 1 MG TABLET PO SCH (09:24)
[2016-11-07] MEDS: Gabapentin 300 MG CAPSULE PO SCH (09:24)
[2016-11-08 08:04] LABS: ANA IgG by ELISA NONE DETECTED (None Detected)
== END 2016-11-07 10:30 ==
LOC: 3BNU 16:24 → EMEROO 16:24 → SUATTDRO 22:33 → 3BNU 10-25 00:03
PROVIDERS: ADMIT Internal Medicine; ATTEND Internal Medicine